=== PATIENT | female | born 1955 | race Caucasian/White ===

== ENCOUNTER 2024-02-23 21:37 | Emergency (ER) | payer OTHER ==
[~2024-02-23] VITALS: Ht 162.6 cm; Wt 104.3 kg
[2024-02-23 21:41] VITALS: BP 150/90; PULSE 70; RESP 18; TEMP 98.6; O2SAT 96
[2024-02-23] MEDS: FAMOTIDINE 20 MG TAB PO ONE (22:20)
[2024-02-23] MEDS: predniSONE 20 MG TAB PO ONE (22:23)
[2024-02-23 22:24] VITALS: BP 150/90; PULSE 70; RESP 18; TEMP 98.6
[2024-02-23 22:25] VITALS: O2SAT 97
== END 2024-02-24 00:57 | disposition home or self-care (01) ==
LOC: MED 21:37
DX: T78.49XA Other allergy, initial encounter (principal); E11.9 Type 2 diabetes mellitus without complications; Z88.0 Allergy status to penicillin; Z88.2 Allergy status to sulfonamides; X58.XXXA Exposure to other specified factors, initial encounter
CPT/HCPCS: 99283; J7512